=== PATIENT | female | born 1935 | race Caucasian/White ===

== ENCOUNTER → 2017-09-05 | Outpatient (CLI) | payer MEDICARE, OTHER ==
[~2017-09-05] MED LIST: ABILIFY2 MG PO; ATENOLOL25 MG PO; BENZONATATE100 MG PO; CYMBALTA60 MG PO; ENALAPRIL MALE2.5 MG PO; EVISTA60 MG PO; FLUTICASONE PRO16 GM; HYDROCODON-ACE1 EACH PO; MONTELUKAST SOD10 MG PO; NEXIUM40 MG PO; PRAVASTATIN SOD40 MG PO; PROAIR HFA INH8.5 GM
--- NOTE | 2017-09-05 11:00 | Diagnostic Imaging Report ---
PROCEDURE:US RETROPERITONEAL ( KIDNEY ). COMPARISON:None. INDICATIONS:Urinary Tract Infection TECHNIQUE: Coats-scale and color sonographic images of the bilateral kidneys and bladder where obtained in transverse and longitudinal planes. FINDINGS: RIGHT KIDNEY: 9.7 cm, cortex 1.4 cm Cysts: 1.0 x 1.1 x 1.0 cm simple cyst in the interpolar region. 1.8 x 1.3 x 1.4 cm simple cyst in the superior pole. Solid masses: None. Stones: None. Hydronephrosis: None. Minimal prominence of the right renal pelvis. Echogenicity: Normal. LEFT KIDNEY: 10.4 cm, cortex 1.7 cm Cysts: 1.7 x 1.5 x 1.7 cm simple cyst in the interpolar region. 0.7 x 0.6 x 0.8 cm simple cyst in the superior pole. Solid masses: None. Stones: None. Hydronephrosis: None. Echogenicity: Normal. Bladder: Normal contour. Bilateral ureteral jets are visualized. Incidental note is made of a small right ureterocele. CONCLUSION: No acute sonographic abnormality. Small right ureterocele. Bilateral renal simple cysts. Dictated by: Chidi Alcazar M.D. on 09/05/2017 at 11:02 Electronically approved by: Chidi Alcazar M.D. on 09/05/2017 at 11:02
== END ==
LOC: US 09:42
PROVIDERS: ATTEND Urology
DX: N39.0 Urinary tract infection, site not specified (principal)
CPT/HCPCS: 76770